=== PATIENT | male | born 2005 | race Caucasian/White ===

== ENCOUNTER 2024-12-22 17:48 | Emergency (ER) | payer BC, OTHER ==
[2024-12-22 17:58] VITALS: RESP 20; TEMP 98.6; BMI 31.1
[2024-12-22] MEDS ORDERED: ALBUTEROL SO4 2.5/IPRATROPIUM 0.5 INH SOL 3 ML VIAL.NEB. NEB ONE (18:27)
[2024-12-22] MEDS: ALBUTEROL SO4 2.5/IPRATROPIUM 0.5 INH SOL 3 ML VIAL.NEB. NEB ONE (18:32)
[2024-12-22 19:36] VITALS: BP 122/69; PULSE 93
== END 2024-12-22 19:37 | disposition home or self-care (01) ==
LOC: JER 17:48
PROC: 3E0F7GC Introduction of Other Therapeutic Substance into Respiratory Tract, Via Natural or Artificial Opening (ICD-10-PCS; principal; 2024-12-22)
DX: R06.2 Wheezing (principal); R06.02 Shortness of breath; R09.89 Other specified symptoms and signs involving the circulatory and respiratory systems; R00.0 Tachycardia, unspecified
CPT/HCPCS: 71046-TC-FY; 93005; 93010; 94640; 99284-25